=== PATIENT | male | born 1940 | race Caucasian/White ===

== ENCOUNTER 2019-04-18 16:19 | Inpatient (IN) ==
[2019-04-18 18:03] LABS: Basophils % 0.2 % (0.0-0.8); Hematocrit 46.3 VOL% (42.0-52.0); Hemoglobin 14.2 GM/DL (14.0-18.0); Immature Granulocytes Absolute 0.18 #; Lymphocytes # 1.3 10*3/uL (1.4-4.0); Mean Corpuscular HGB Conc 30.7 GM/DL (32-36); Mean Corpuscular Volume 82.4 FL (87-102); Monocytes % 6.1 % (1.7-12.7); Neutrophils % 85.7 % (38.7-73.9); Platelet Count 168 T/CUMM (130-400); Red Blood Count 5.62 MC/CUMM (3.8-5.5); Red Cell Distribution Width 16.5 % (9.3-17.3); White Blood Count 17.8 T/CUMM (4-12)
[2019-04-18 18:06] LABS: Albumin 3.1 G/DL (3.4-5.0); Bilirubin,Total 5.6 MG/DL (0.2-1.0); Calcium 9.7 MG/DL (8.5-10.1); Osmolality,Calculated 286.8 MOS/KG (273-304); Total Protein 7.7 G/DL (6.4-8.3)
[2019-04-18 18:12] LABS: Apearance,Urine CLEAR (Clear); Bilirubin,Urine Small mg/dL (Negative); Blood, Urine Negative (Negative); Glucose,Urine (UA) 150 mg/dL (Negative); Ketones,Urine Negative (Negative); Mucus,Urine Occasional /LPF (Occasional); Nitrite,Urine Negative (Negative); Protein,Urine 100 MG/DL; RBC,Urine 1 /HPF (0-4); Squamous Epithelial Cell,Urine Occasional /HPF (0-10); Urine Color Dark Yellow (Yellow); WBC,Urine <1 /HPF (0-6)
[2019-04-18] MEDS ORDERED: PIPERACILLIN/TAZOBACTAM 3,375 MG in SODIUM CHLORIDE 0.9% 100 ML IV STA (19:13)
[2019-04-18] MEDS ORDERED: ACETAMINOPHEN 325 MG TABLET PO PRN (19:43)
[2019-04-18] MEDS ORDERED: ONDANSETRON 4 MG/2 ML VIAL IV PRN (19:43)
[2019-04-18] MEDS: SODIUM CHLORIDE 0.9% 1,000 ML IV SCH (22:06)
[2019-04-18] MEDS: DOCUSATE SODIUM 100 MG CAPSULE PO SCH (22:07)
[2019-04-19 00:57] LABS: Basophils # 0.1 10*3/uL (0.0-0.2); Basophils % 0.3 % (0.0-0.8); Eosinophils % 0.1 % (0.00-10.9); Hemoglobin 13.8 GM/DL (14.0-18.0); Immature Granulocytes % 1.3 %; Immature Granulocytes Absolute 0.23 #; Lymphocytes # 0.5 10*3/uL (1.4-4.0); Lymphocytes % 2.8 % (21.2-54.2); Mean Corpuscular HGB Conc 30.7 GM/DL (32-36); Mean Corpuscular Volume 82.4 FL (87-102); Mean Platelet Volume 10.5 FL (9.6-12.0); Monocytes % 4.9 % (1.7-12.7); Neutrophils % 90.6 % (38.7-73.9); Platelet Count 150 T/CUMM (130-400); Red Blood Count 5.46 MC/CUMM (3.8-5.5); Red Cell Distribution Width 16.3 % (9.3-17.3)
[2019-04-19 01:51] LABS: Albumin 2.9 G/DL (3.4-5.0); Bilirubin,Total 6.1 MG/DL (0.2-1.0); Calcium 9.7 MG/DL (8.5-10.1); Osmolality,Calculated 289.7 MOS/KG (273-304); Total Protein 7.3 G/DL (6.4-8.3)
[2019-04-19 02:03] LABS: Band Neutrophils 11 % (0-10); Lymphocytes 4 % (20-55); Segmented Neutrophils 84 % (50-85); Total Cells Counted 100
[2019-04-19 02:04] LABS: Anisocytosis 1+; Platelet Estimate Adequate
[2019-04-19] MEDS: PIPERACILLIN/TAZOBACTAM 3,375 MG in SODIUM CHLORIDE 0.9% 100 ML IV SCH ×3 (04:02→21:47)
[2019-04-19] MEDS: SODIUM CHLORIDE 0.9% 1,000 ML IV SCH ×3 (04:24→21:48)
[2019-04-19] MEDS ORDERED: DEXTROSE 10% 250 ML BAG IV PRN (09:00)
[2019-04-19] MEDS ORDERED: GLUCAGON 1 MG VIAL IM PRN (09:00)
[2019-04-19 09:36] LABS: Basophils % 0.2 % (0.0-0.8); Eosinophils % 0.1 % (0.00-10.9); Hematocrit 44.6 VOL% (42.0-52.0); Hemoglobin 13.6 GM/DL (14.0-18.0); Immature Granulocytes % 1.3 %; Immature Granulocytes Absolute 0.25 #; Lymphocytes # 1.3 10*3/uL (1.4-4.0); Lymphocytes % 6.4 % (21.2-54.2); Mean Corpuscular HGB Conc 30.5 GM/DL (32-36); Mean Corpuscular Volume 83.4 FL (87-102); Mean Platelet Volume 10.5 FL (9.6-12.0); Monocytes % 7.3 % (1.7-12.7); Neutrophils % 84.7 % (38.7-73.9); Platelet Count 160 T/CUMM (130-400); Red Blood Count 5.35 MC/CUMM (3.8-5.5); Red Cell Distribution Width 16.3 % (9.3-17.3); White Blood Count 19.6 T/CUMM (4-12)
[2019-04-19 09:54] LABS: Albumin 2.8 G/DL (3.4-5.0); Bilirubin,Total 3.8 MG/DL (0.2-1.0); Calcium 9.7 MG/DL (8.5-10.1); Osmolality,Calculated 286.8 MOS/KG (273-304); Risk Ratio 7.64; Total Protein 7.3 G/DL (6.4-8.3); VLDL CHOLESTEROL 27.6 MG/DL
[2019-04-19] MEDS: PANTOPRAZOLE 40 MG TABLET PO SCH (10:04)
[2019-04-19] MEDS: DOCUSATE SODIUM 100 MG CAPSULE PO SCH ×2 (10:04→21:48)
[2019-04-19] MEDS ORDERED: METOPROLOL TARTRATE 100 MG TABLET PO ONE (11:36)
[2019-04-19] MEDS: INSULIN REGULAR 100 UNIT/ML SUBCUT SCH ×2 (12:13→18:33)
[2019-04-19] MEDS ORDERED: amLODIPine 5 MG TABLET PO SCH (21:00)
[2019-04-19] MEDS: METOPROLOL TARTRATE 100 MG TABLET PO SCH (21:48)
[2019-04-20] MEDS: PIPERACILLIN/TAZOBACTAM 3,375 MG in SODIUM CHLORIDE 0.9% 100 ML IV SCH ×3 (01:55→20:33)
[2019-04-20] MEDS: INSULIN REGULAR 100 UNIT/ML SUBCUT SCH ×4 (03:30→18:33)
[2019-04-20] MEDS: SODIUM CHLORIDE 0.9% 1,000 ML IV SCH ×2 (04:15→15:50)
[2019-04-20 04:39] LABS: Basophils % 0.2 % (0.0-0.8); Hematocrit 44.6 VOL% (42.0-52.0); Hemoglobin 13.9 GM/DL (14.0-18.0); Immature Granulocytes % 1.5 %; Immature Granulocytes Absolute 0.28 #; Lymphocytes # 1.1 10*3/uL (1.4-4.0); Lymphocytes % 5.7 % (21.2-54.2); Mean Corpuscular HGB Conc 31.2 GM/DL (32-36); Mean Corpuscular Volume 81.7 FL (87-102); Mean Platelet Volume 10.7 FL (9.6-12.0); Monocytes % 8.1 % (1.7-12.7); Neutrophils % 84.5 % (38.7-73.9); Platelet Count 152 T/CUMM (130-400); Red Blood Count 5.46 MC/CUMM (3.8-5.5); Red Cell Distribution Width 16.4 % (9.3-17.3); White Blood Count 18.8 T/CUMM (4-12)
[2019-04-20 05:11] LABS: Albumin 2.4 G/DL (3.4-5.0); Bilirubin,Total 2.2 MG/DL (0.2-1.0); Calcium 9.5 MG/DL (8.5-10.1); Osmolality,Calculated 289.5 MOS/KG (273-304); Total Protein 7.3 G/DL (6.4-8.3)
[2019-04-20 07:41] LABS: PT Patient Result 10.6 SECS
[2019-04-20] MEDS ORDERED: LIDOCAINE 100 MG/5 ML SYRINGE ONE (09:00)
[2019-04-20] MEDS ORDERED: ROCURONIUM 100 MG/10 ML VIAL IV ONE (09:00)
[2019-04-20] MEDS ORDERED: SUCCINYLCHOLINE 200 MG/10 ML VIAL ONE (09:00)
[2019-04-20] MEDS ORDERED: PROPOFOL 200 MG/20 ML VIAL IV ONE (09:00)
[2019-04-20] MEDS ORDERED: PHENYLEPHRINE 1 MG/10 ML SYRINGE IV ONE (09:00)
[2019-04-20] MEDS: PANTOPRAZOLE 40 MG TABLET PO SCH (10:22)
[2019-04-20] MEDS: METOPROLOL TARTRATE 100 MG TABLET PO SCH ×2 (10:22→20:33)
[2019-04-20] MEDS: INSULIN GLARGINE 100 UNIT/ML SUBCUT SCH (10:23)
[2019-04-20] MEDS: DOCUSATE SODIUM 100 MG CAPSULE PO SCH ×2 (10:23→20:33)
[2019-04-20] MEDS: ASPIRIN EC 81 MG TABLET PO SCH (10:23)
[2019-04-20] MEDS ORDERED: INDOMETHACIN SUPP 50 MG SUPP RECTAL ONE (11:00)
[2019-04-20] MEDS ORDERED: ENOXAPARIN 30 MG/0.3 ML SYRINGE SUBCUT SCH (11:00)
[2019-04-20] MEDS: LACTATED RINGERS 1,000 ML IV SCH (12:57)
[2019-04-20] MEDS ORDERED: fentaNYL 100 MCG/2 ML VIAL ONE (13:54)
[2019-04-20] MEDS ORDERED: MIDAZOLAM 2 MG/2 ML VIAL ONE (13:54)
[2019-04-20] MEDS ORDERED: ePHEDrine 50 MG/ML AMP ONE (14:18)
[2019-04-20] MEDS ORDERED: SEVOFLURANE 1 UNIT/15 MINUTE INH ONE (14:49)
[2019-04-20] MEDS ORDERED: DILTIAZEM CD 120 MG CAPSULE PO SCH (21:00)
[2019-04-21] MEDS: INSULIN REGULAR 100 UNIT/ML SUBCUT SCH ×4 (01:16→18:41)
[2019-04-21] MEDS: SODIUM CHLORIDE 0.9% 1,000 ML IV SCH ×4 (01:17→20:33)
[2019-04-21] MEDS: PIPERACILLIN/TAZOBACTAM 3,375 MG in SODIUM CHLORIDE 0.9% 100 ML IV SCH ×3 (04:19→20:27)
[2019-04-21 05:56] LABS: Albumin 2.1 G/DL (3.4-5.0); Bilirubin,Total 1.5 MG/DL (0.2-1.0); Calcium 9.4 MG/DL (8.5-10.1); Osmolality,Calculated 287.4 MOS/KG (273-304); Total Protein 6.7 G/DL (6.4-8.3)
[2019-04-21 05:58] LABS: Basophils % 0.2 % (0.0-0.8); Eosinophils # 0.1 10*3/uL (0.0-0.87); Eosinophils % 0.3 % (0.00-10.9); Hematocrit 43.2 VOL% (42.0-52.0); Hemoglobin 13.6 GM/DL (14.0-18.0); Immature Granulocytes % 0.9 %; Immature Granulocytes Absolute 0.14 #; Lymphocytes # 1.3 10*3/uL (1.4-4.0); Lymphocytes % 8.4 % (21.2-54.2); Mean Corpuscular HGB Conc 31.5 GM/DL (32-36); Mean Corpuscular Volume 82.1 FL (87-102); Mean Platelet Volume 11.1 FL (9.6-12.0); Monocytes % 10.6 % (1.7-12.7); Neutrophils % 79.6 % (38.7-73.9); Platelet Count 152 T/CUMM (130-400); Red Blood Count 5.26 MC/CUMM (3.8-5.5); Red Cell Distribution Width 16.4 % (9.3-17.3)
[2019-04-21] MEDS: METOPROLOL TARTRATE 100 MG TABLET PO SCH ×2 (08:19→20:28)
[2019-04-21] MEDS: ASPIRIN EC 81 MG TABLET PO SCH (08:19)
[2019-04-21] MEDS: DOCUSATE SODIUM 100 MG CAPSULE PO SCH ×2 (08:19→20:28)
[2019-04-21] MEDS: PANTOPRAZOLE 40 MG TABLET PO SCH (08:19)
[2019-04-21] MEDS: INSULIN GLARGINE 100 UNIT/ML SUBCUT SCH (08:20)
[2019-04-21] MEDS: DILTIAZEM CD 180 MG CAPSULE PO SCH ×2 (10:01→20:28)
[2019-04-21] MEDS ORDERED: BUPIVACAINE MPF 0.25% /EPI 30 ML VIAL ONE (10:12)
[2019-04-21] MEDS ORDERED: LIDOCAINE 1%/EPI INJ 20 ML VIAL ONE (10:12)
[2019-04-21] MEDS: LACTATED RINGERS 1,000 ML IV SCH (13:34)
[2019-04-21] MEDS ORDERED: ONDANSETRON 4 MG/2 ML VIAL ONE ×2 (13:41→13:49)
[2019-04-21] MEDS ORDERED: MEPERIDINE 25 MG/1 ML VIAL ONE (13:41)
[2019-04-21] MEDS: MEPERIDINE 25 MG/1 ML VIAL IV PRN ×2 (13:45→15:18)
[2019-04-21] MEDS ORDERED: SUGAMMADEX 200 MG/2 ML VIAL IV ONE (13:46)
[2019-04-21] MEDS ORDERED: fentaNYL 100 MCG/2 ML VIAL ONE (13:49)
[2019-04-21] MEDS ORDERED: DEXAMETHASONE 4 MG/1 ML VIAL ONE (13:49)
[2019-04-21] MEDS ORDERED: NALOXONE 0.4 MG/ML VIAL ONE (13:49)
[2019-04-21] MEDS ORDERED: SEVOFLURANE 1 UNIT/15 MINUTE INH ONE (13:49)
[2019-04-21] MEDS ORDERED: PROPOFOL 200 MG/20 ML VIAL IV ONE (13:49)
[2019-04-21] MEDS ORDERED: ETOMIDATE 40 MG/20 ML VIAL IV ONE (13:49)
[2019-04-21] MEDS ORDERED: ROCURONIUM 100 MG/10 ML VIAL IV ONE (13:50)
[2019-04-21] MEDS ORDERED: PHENYLEPHRINE 1 MG/10 ML SYRINGE IV ONE (13:50)
[2019-04-21] MEDS ORDERED: SUCCINYLCHOLINE 200 MG/10 ML VIAL ONE (13:50)
[2019-04-21] MEDS ORDERED: LACTATED RINGERS 1,000 ML IV ONE (13:50)
[2019-04-21] MEDS ORDERED: ACETAMINOPHEN 1,000 MG/100 ML VIAL IV ONE (13:50)
[2019-04-21] MEDS ORDERED: GLYCOPYRROLATE 0.4 MG/2 ML VIAL ONE (13:50)
[2019-04-21] MEDS ORDERED: NEOSTIGMINE 10 MG/10 ML VIAL ONE (13:50)
[2019-04-21] MEDS ORDERED: ONDANSETRON 4 MG/2 ML VIAL IV PRN (13:53)
[2019-04-21] MEDS ORDERED: MEPERIDINE 25 MG/1 ML VIAL IV PRN (15:20)
[2019-04-22] MEDS: INSULIN REGULAR 100 UNIT/ML SUBCUT SCH ×5 (01:42→23:39)
[2019-04-22] MEDS: PIPERACILLIN/TAZOBACTAM 3,375 MG in SODIUM CHLORIDE 0.9% 100 ML IV SCH ×3 (04:16→20:48)
[2019-04-22] MEDS: SODIUM CHLORIDE 0.9% 1,000 ML IV SCH ×4 (04:17→20:00)
[2019-04-22 05:07] LABS: Basophils % 0.2 % (0.0-0.8); Hematocrit 40.4 VOL% (42.0-52.0); Hemoglobin 12.3 GM/DL (14.0-18.0); Immature Granulocytes % 2.3 %; Immature Granulocytes Absolute 0.41 #; Lymphocytes # 1.1 10*3/uL (1.4-4.0); Lymphocytes % 6.4 % (21.2-54.2); Mean Corpuscular HGB Conc 30.4 GM/DL (32-36); Mean Corpuscular Volume 82.4 FL (87-102); Mean Platelet Volume 10.5 FL (9.6-12.0); Monocytes % 8.6 % (1.7-12.7); Neutrophils % 82.5 % (38.7-73.9); Platelet Count 171 T/CUMM (130-400); Red Cell Distribution Width 16.5 % (9.3-17.3); White Blood Count 17.6 T/CUMM (4-12)
[2019-04-22 05:32] LABS: Calcium 8.9 MG/DL (8.5-10.1); Osmolality,Calculated 295.5 MOS/KG (273-304)
[2019-04-22 05:40] LABS: Albumin 1.9 G/DL (3.4-5.0); Bilirubin,Total 1.3 MG/DL (0.2-1.0); Calcium 8.8 MG/DL (8.5-10.1); Osmolality,Calculated 296.5 MOS/KG (273-304); Total Protein 6.4 G/DL (6.4-8.3)
[2019-04-22] MEDS: DILTIAZEM CD 180 MG CAPSULE PO SCH ×2 (09:18→20:48)
[2019-04-22] MEDS: ASPIRIN EC 81 MG TABLET PO SCH (09:18)
[2019-04-22] MEDS: INSULIN GLARGINE 100 UNIT/ML SUBCUT SCH (09:18)
[2019-04-22] MEDS: PANTOPRAZOLE 40 MG TABLET PO SCH (09:19)
[2019-04-22] MEDS: DOCUSATE SODIUM 100 MG CAPSULE PO SCH ×2 (09:19→20:48)
[2019-04-22] MEDS: METOPROLOL TARTRATE 100 MG TABLET PO SCH ×2 (09:19→20:47)
[2019-04-22] MEDS ORDERED: POLYETHYLENE GLYCOL POWDER 17 GM PACK PO SCH (09:27)
[2019-04-22] MEDS ORDERED: POLYETHYLENE GLYCOL POWDER 17 GM PACK PO PRN (11:39)
[2019-04-22] MEDS: LACTATED RINGERS 1,000 ML IV SCH (11:56)
[2019-04-22] MEDS: IBUPROFEN 400 MG TABLET PO PRN ×2 (17:50→23:39)
[2019-04-23] MEDS: SODIUM CHLORIDE 0.9% 1,000 ML IV SCH ×5 (02:03→20:30)
[2019-04-23] MEDS: PIPERACILLIN/TAZOBACTAM 3,375 MG in SODIUM CHLORIDE 0.9% 100 ML IV SCH ×3 (03:29→21:33)
[2019-04-23 05:40] LABS: Basophils % 0.2 % (0.0-0.8); Eosinophils # 0.1 10*3/uL (0.0-0.87); Eosinophils % 0.8 % (0.00-10.9); Hematocrit 38.1 VOL% (42.0-52.0); Hemoglobin 11.9 GM/DL (14.0-18.0); Immature Granulocytes % 4.1 %; Immature Granulocytes Absolute 0.73 #; Lymphocytes # 1.7 10*3/uL (1.4-4.0); Lymphocytes % 9.5 % (21.2-54.2); Mean Corpuscular HGB Conc 31.2 GM/DL (32-36); Mean Corpuscular Volume 81.2 FL (87-102); Mean Platelet Volume 10.7 FL (9.6-12.0); Monocytes % 10.3 % (1.7-12.7); Neutrophils % 75.1 % (38.7-73.9); Platelet Count 181 T/CUMM (130-400); Red Blood Count 4.69 MC/CUMM (3.8-5.5); Red Cell Distribution Width 16.5 % (9.3-17.3); White Blood Count 17.7 T/CUMM (4-12)
[2019-04-23 05:58] LABS: Osmolality,Calculated 289.5 MOS/KG (273-304)
[2019-04-23 06:04] LABS: Bilirubin,Total 1.1 MG/DL (0.2-1.0); Osmolality,Calculated 287.7 MOS/KG (273-304); Total Protein 6.3 G/DL (6.4-8.3)
[2019-04-23] MEDS: IBUPROFEN 400 MG TABLET PO PRN ×3 (06:09→21:37)
[2019-04-23] MEDS: INSULIN REGULAR 100 UNIT/ML SUBCUT SCH ×3 (06:09→18:40)
[2019-04-23 06:23] LABS: Anisocytosis Slight; Lymphocytes 6 % (20-55); Metamyelocytes 1 %; Microcytosis Slight; Segmented Neutrophils 79 % (50-85); Total Cells Counted 100
[2019-04-23 06:24] LABS: Platelet Estimate Normal; Polychromasia Slight
[2019-04-23] MEDS: DOCUSATE SODIUM 100 MG CAPSULE PO SCH ×2 (09:24→21:37)
[2019-04-23] MEDS: ASPIRIN EC 81 MG TABLET PO SCH (09:24)
[2019-04-23] MEDS: INSULIN GLARGINE 100 UNIT/ML SUBCUT SCH (09:24)
[2019-04-23] MEDS: PANTOPRAZOLE 40 MG TABLET PO SCH (09:25)
[2019-04-23] MEDS: DILTIAZEM CD 180 MG CAPSULE PO SCH (09:25)
[2019-04-23] MEDS: METOPROLOL TARTRATE 100 MG TABLET PO SCH ×2 (09:25→21:37)
[2019-04-23] MEDS: LACTATED RINGERS 1,000 ML IV SCH (11:16)
[2019-04-23] MEDS ORDERED: POTASSIUM CHLORIDE 20 MEQ TABLET PO PRN (11:31)
[2019-04-23] MEDS: DILTIAZEM CD 120 MG CAPSULE PO SCH (21:36)
[2019-04-24] MEDS: INSULIN REGULAR 100 UNIT/ML SUBCUT SCH ×3 (00:46→12:43)
[2019-04-24] MEDS: SODIUM CHLORIDE 0.9% 1,000 ML IV SCH ×2 (04:00→12:00)
[2019-04-24] MEDS: PIPERACILLIN/TAZOBACTAM 3,375 MG in SODIUM CHLORIDE 0.9% 100 ML IV SCH (05:37)
[2019-04-24 05:38] LABS: Basophils # 0.1 10*3/uL (0.0-0.2); Basophils % 0.4 % (0.0-0.8); Eosinophils # 0.3 10*3/uL (0.0-0.87); Eosinophils % 1.6 % (0.00-10.9); Hematocrit 38.1 VOL% (42.0-52.0); Hemoglobin 11.6 GM/DL (14.0-18.0); Immature Granulocytes % 3.7 %; Immature Granulocytes Absolute 0.62 #; Lymphocytes # 1.6 10*3/uL (1.4-4.0); Lymphocytes % 9.8 % (21.2-54.2); Mean Corpuscular HGB Conc 30.4 GM/DL (32-36); Mean Corpuscular Volume 82.8 FL (87-102); Mean Platelet Volume 10.5 FL (9.6-12.0); Monocytes % 8.5 % (1.7-12.7); Platelet Count 195 T/CUMM (130-400); Red Cell Distribution Width 16.8 % (9.3-17.3); White Blood Count 16.6 T/CUMM (4-12)
[2019-04-24 06:13] LABS: Band Neutrophils 2 % (0-10); Eosinophils 1 % (0-10); Hypochromasia Slight; Lymphocytes 9 % (20-55); Platelet Estimate Normal; Segmented Neutrophils 85 % (50-85); Total Cells Counted 100
[2019-04-24] MEDS: IBUPROFEN 400 MG TABLET PO PRN (06:28)
[2019-04-24 06:38] LABS: Bilirubin,Total 0.8 MG/DL (0.2-1.0); Calcium 8.4 MG/DL (8.5-10.1); Osmolality,Calculated 294.3 MOS/KG (273-304); Total Protein 5.4 G/DL (6.4-8.3)
[2019-04-24] MEDS ORDERED: AMOXICILLIN/CLAV 875 MG TABLET PO SCH (09:00)
[2019-04-24] MEDS ORDERED: APIXABAN 5 MG TABLET PO SCH (09:00)
[2019-04-24] MEDS: ASPIRIN EC 81 MG TABLET PO SCH (09:16)
[2019-04-24] MEDS: DILTIAZEM CD 120 MG CAPSULE PO SCH (09:16)
[2019-04-24] MEDS: PANTOPRAZOLE 40 MG TABLET PO SCH (09:17)
[2019-04-24] MEDS: METOPROLOL TARTRATE 100 MG TABLET PO SCH (09:17)
[2019-04-24] MEDS: DOCUSATE SODIUM 100 MG CAPSULE PO SCH (09:17)
[2019-04-24] MEDS: INSULIN GLARGINE 100 UNIT/ML SUBCUT SCH (09:20)
[2019-04-24] MEDS: LACTATED RINGERS 1,000 ML IV SCH (11:00)
[2019-04-24 11:10] VITALS: BP 150/62
== END 2019-04-24 14:28 | DRG 415 ==
LOC: N.ED 16:19 → N.3E 19:43
PROVIDERS: ADMIT Internal Medicine; ATTEND Internal Medicine
PROC: ERCPWSP (ICD-10-PCS; 2019-04-20 12:05)
PROC: LAPCHOL (2019-04-21 10:50)